=== PATIENT | female | born 1940 | race Caucasian/White ===

== ENCOUNTER 2023-06-13 15:01 | Emergency (ER) | payer MEDICARE ==
[~2023-06-13] VITALS: Ht 162.6 cm; Wt 77.1 kg
[2023-06-13 19:11] VITALS: BP 119/62; PULSE 74; RESP 18; TEMP 98.6; O2SAT 100
== END 2023-06-13 18:12 | disposition home or self-care (01) ==
LOC: ER 15:10
DX: R13.10 Dysphagia, unspecified (principal); I10 Essential (primary) hypertension; E78.5 Hyperlipidemia, unspecified; F17.210 Nicotine dependence, cigarettes, uncomplicated
CPT/HCPCS: 99282